=== PATIENT | female | born 1975 | race Caucasian/White ===

== ENCOUNTER → 2016-07-18 | Outpatient (CLI) | payer OTHER ==
[~2016-07-18] MED LIST: ESTR1TAB66; LORA1TAB; OMEP20CA12 PO; ONDA4TAB8 SL; PHEN10TA20; ROSU10TA12
[2016-07-18 07:22] LABS: ALANINE AMINOTRANSFERASE 16 U/L (0-55); ALBUMIN 4.7 G/DL (3.2-4.5); ANION GAP 8 MMOL/L (5-14); ASPARTATE AMINO TRANSFERASE 23 U/L (5-34); BILIRUBIN,TOTAL 0.7 MG/DL (0.1-1.0); BLOOD UREA NITROGEN 4 MG/DL (7-18); BUN/CREATININE RATIO 5; CALCIUM 9.6 MG/DL (8.5-10.1); CARBON DIOXIDE 27 MMOL/L (21-32); CHLORIDE 102 MMOL/L (98-107); CREATININE SERUM 0.74 MG/DL (0.60-1.30); GFR ESTIMATED > 60; GLUCOSE 83 MG/DL (70-105); LIPASE 29 U/L (8-78); POTASSIUM 4.1 MMOL/L (3.6-5.0); SODIUM 137 MMOL/L (135-145); TOTAL PROTEIN 7.3 G/DL (6.4-8.2)
--- NOTE | 2016-07-18 10:01 | Diagnostic Imaging Report ---
PROCEDURE: US Gallbladder. TECHNIQUE: Multiple real-time grayscale images were obtained over the right upper quadrant in various projections. INDICATION: Right upper quadrant pain. FINDINGS: The pancreas is partially obscured by bowel gas. The liver demonstrate no focal lesion. There is normal caliber of the CBD at the 0.4 cm. Hepatopetal flow in the portal vein is seen. The gallbladder demonstrates no stones or wall thickening. No pericholecystic fluid. No fluid collection in the upper right abdomen. Sonographic Adams sign is reportedly negative. The right kidney is 12 cm in length with no hydronephrosis or focal lesion. IMPRESSION: Unremarkable exam. Dictated by: Dictated on workstation # [id number]
== END ==
LOC: RAD 06:48
PROVIDERS: ATTEND Family Medicine
DX: R10.11 Right upper quadrant pain (principal)
CPT/HCPCS: 36415; 76705; 80053; 83690

== ENCOUNTER → 2018-11-04 | Outpatient (CLI) | payer BC, OTHER ==
--- NOTE | 2018-11-04 16:42 | Diagnostic Imaging Report ---
INDICATION: Routine screening. COMPARISON: Comparison is made with prior mammogram from 08/05/2014. TECHNIQUE: 2-D and 3-D bilateral screening mammography was performed. The current study was also evaluated with a Computer Aided Detection (CAD) system. 3-D tomosynthesis was also performed and reviewed. FINDINGS: Scattered fibroglandular densities are identified bilaterally. The parenchymal pattern is stable. No mass or malignant-appearing microcalcifications are seen. Axillae are unremarkable. IMPRESSION: No mammographic features suspicious for malignancy are identified. ACR BI-RADS Category 1: Negative. Result letter will be mailed to the patient. Note: At least 10% of breast cancer is not imaged by mammography. Dictated by: Dictated on workstation # [id number]
== END ==
LOC: RAD 15:42
PROVIDERS: ATTEND Family Medicine
DX: Z12.31 Encounter for screening mammogram for malignant neoplasm of breast (principal)
CPT/HCPCS: 77067

== ENCOUNTER → 2019-05-14 | Outpatient (CLI) | payer BC ==
[~2019-05-14] MED LIST changes: +OMEP-280 PO; -OMEP20CA12 PO
--- NOTE | 2019-05-14 16:37 | Diagnostic Imaging Report ---
INDICATION: Right breast pain for two weeks. FINDINGS: Sonographic interrogation of the area of pain in the lateral right breast was performed. No sonographic abnormality is seen. No solid or cystic mass is detected. IMPRESSION: No sonographic abnormality is detected. Dictated by: Dictated on workstation # [id number]
== END ==
LOC: RAD 14:05
PROVIDERS: ATTEND Family Medicine
DX: N64.4 Mastodynia (principal)
CPT/HCPCS: 76641

== ENCOUNTER → 2020-06-08 | Outpatient (CLI) | payer BC ==
[~2020-06-08] MED LIST changes: -OMEP-280 PO; +OMEP20CA18 PO
--- NOTE | 2020-06-09 11:55 | Diagnostic Imaging Report ---
INDICATION: Routine screening. COMPARISON is made with prior mammograms from 11/04/2018 and 08/05/2014. 2-D and 3-D bilateral screening mammography was performed with CAD. Scattered fibroglandular densities are identified bilaterally. Nodular density in the outer left breast appears stable. No new mass or malignant appearing microcalcifications are seen. Axillae are unremarkable. IMPRESSION: BI-RADS Category 2 No mammographic features suspicious for malignancy are identified. ACR BI-RADS Category 2: Benign findings. Result letter will be mailed to the patient. Note: At least 10% of breast cancer is not imaged by mammography. Dictated by: Dictated on workstation # [id number]
== END ==
LOC: RAD 15:45
PROVIDERS: ATTEND Family Medicine
DX: Z12.31 Encounter for screening mammogram for malignant neoplasm of breast (principal)
CPT/HCPCS: 77063; 77067

== ENCOUNTER → 2020-07-14 | Outpatient (CLI) | payer BC ==
--- NOTE | 2020-07-14 15:12 | Diagnostic Imaging Report ---
INDICATION: Mastodynia. EXAMINATION: Sonographic interrogation of the area of pain in the right breast was performed. This corresponds to inferior half of the right breast. FINDINGS: No sonographic abnormality is seen. No solid or cystic mass is detected. IMPRESSION: No sonographic abnormality is detected. ACR BI-RADS Category 1: Negative. Result letter will be mailed to the patient. Note: At least 10% of breast cancer is not imaged by mammography. Dictated by: Dictated on workstation # [id number]
== END ==
LOC: RAD 14:15
PROVIDERS: ATTEND Obstetrics & Gynecology
DX: N64.4 Mastodynia (principal)

== ENCOUNTER → 2021-07-04 | Outpatient (CLI) | payer BC, OTHER ==
--- NOTE | 2021-07-05 08:57 | Diagnostic Imaging Report ---
INDICATION: Routine screening. COMPARISON: 06/08/2020 and 11/04/2018. TECHNIQUE: 2D and 3D bilateral screening mammography was performed with CAD. FINDINGS: Scattered fibroglandular densities are identified bilaterally. A benign nodule in the lateral left breast is stable. No new mass or malignant-appearing microcalcifications are seen. The axillae are unremarkable. IMPRESSION: No mammographic features suspicious for malignancy are identified. ACR BI-RADS Category 2: Benign findings. Result letter will be mailed to the patient. Note: At least 10% of breast cancer is not imaged by mammography. Dictated by: Dictated on workstation # [id number]
== END ==
LOC: RAD 15:45
PROVIDERS: ATTEND Family Medicine
DX: Z12.31 Encounter for screening mammogram for malignant neoplasm of breast (principal)
CPT/HCPCS: 77063; 77067

== ENCOUNTER → 2021-11-08 | Outpatient (CLI) | payer BC, OTHER ==
[2021-11-08 08:29] LABS: ALBUMIN 4.3 GM/DL (3.2-4.5)
[2021-11-08 08:30] LABS: POTASSIUM 4.5 MMOL/L (3.6-5.0)
[2021-11-08 08:31] LABS: CALCIUM 9.3 MG/DL (8.5-10.1)
[2021-11-08 08:32] LABS: TOTAL PROTEIN 6.8 GM/DL (6.4-8.2)
[2021-11-08 08:34] LABS: BILIRUBIN,TOTAL 0.6 MG/DL (0.1-1.0)
[2021-11-08 08:36] LABS: CREATININE SERUM 0.68 MG/DL (0.60-1.30)
--- NOTE | 2021-11-08 10:58 | Diagnostic Imaging Report ---
PROCEDURE: US Hepatic (Liver). TECHNIQUE: Multiple real-time grayscale images were obtained over the right upper quadrant in various projections. INDICATION: Right upper quadrant pain. The liver is upper limits of normal in size 18 cm. The portal vein is patent and shows normal direction of flow. No discrete liver mass is detected. Gallbladder is without stones or sludge. There is no wall thickening or biliary duct dilatation. Pancreas unremarkable. Aorta is nonaneurysmal. IVC is patent. Right kidney is without calculi or hydronephrosis. There is no ascites. IMPRESSION: Unremarkable right upper quadrant ultrasound. Dictated by: Dictated on workstation # [id number]
== END ==
LOC: RAD 08:00
PROVIDERS: ATTEND Family Medicine
DX: R10.11 Right upper quadrant pain (principal)
CPT/HCPCS: 36415; 76705; 80053; 83690

== ENCOUNTER → 2021-11-23 | Outpatient (CLI) | payer BC ==
[~2021-11-23] MED LIST changes: +CATHETER FLUSH 10 ML SYR IVP PRN
--- NOTE | 2021-11-23 17:33 | Diagnostic Imaging Report ---
INDICATION: Right-sided pain. EXAMINATION: HIDA scan, 11/23/2021. FINDINGS: After uneventful administration of 5.01 mCi of technetium mebrofenin intravenously, subsequent imaging was performed with prompt homogeneous uptake seen throughout the liver. Gallbladder and small bowel were seen within 60 minutes. Subsequent administration of 8 ounces of Ensure ingested orally with continued imaging performed. Ejection fraction is calculated at 28.7%. IMPRESSION: 1. No obstructive process. 2. Low ejection fraction suggesting gallbladder dyskinesia or chronic cholecystitis. Correlate with symptoms. Dictated by: Dictated on workstation # [id number]
== END ==
LOC: CARD 12:00
PROVIDERS: ATTEND Family Medicine
DX: R10.11 Right upper quadrant pain (principal)
CPT/HCPCS: 78227; A9537

== ENCOUNTER 2021-12-04 05:27 | Outpatient (CLI) | payer BC ==
[~2021-12-04] VITALS: Ht 165.1 cm; Wt 63.5 kg
[~2021-12-04 05:27] MED LIST changes: -CATHETER FLUSH 10 ML SYR IVP PRN
[2021-12-04] MEDS ORDERED: LORA-405 PO (10:42)
[2021-12-04] MEDS ORDERED: SYNTEST.HS PO (10:42)
== END 2021-12-04 10:58 ==
LOC: PREOP 05:27
PROVIDERS: ATTEND Surgery
DX: Z01.818 Encounter for other preprocedural examination (principal); K82.8 Other specified diseases of gallbladder

== ENCOUNTER 2021-12-07 08:53 | Day surgery (SDC) | payer BC ==
[~2021-12-07] VITALS: Ht 165.1 cm; Wt 61.4 kg
[2021-12-07] VITALS (10 sets, daily range): BP systolic 130–148; BP diastolic 71–94
[~2021-12-07 08:53] MED LIST changes: +LORA-405 PO; +SYNTEST.HS PO
[2021-12-07] MEDS ORDERED: ceFAZolin INJECTION 1,000 MG VIAL IV ONE (09:15)
[2021-12-07] MEDS: LACTATED RINGERS 1,000 ML IV PRN ×2 (09:33→11:30)
[2021-12-07] MEDS ORDERED: BUP/EPI 0.5% 1:200,000 (MARCAINE) 10ML VIAL IJ ONE (09:59)
[2021-12-07] MEDS ORDERED: HYDROcodone/APAP 5 MG/325 MG (LORTAB) TAB PO ONE (10:00)
[2021-12-07] MEDS ORDERED: ONDANSETRON 4 MG/2 ML (SDV) Z0FRAN IVP PRN ×2 (10:00→12:15)
[2021-12-07] MEDS ORDERED: ACETAMINOPHEN 325 MG TABLET PO PRN (10:00)
[2021-12-07] MEDS ORDERED: morphine INJ 10 MG/ML 1ML (SYR OR VIAL) IVP PRN (10:00)
--- NOTE | 2021-12-07 10:00 | Progress Note-Pre Operative ---
Pre-Operative Progress Note Date H&P Reviewed: Dec 07, 2021 Time H&P Reviewed: 09:55 History & Physical: H&P Reviewed, Patient Examed, No changes noted Pre-Operative Diagnosis: Symptomatic biliary dyskinesia DIMPLE JACKSON APRN Dec 07, 2021 10:00
[2021-12-07] MEDS ORDERED: HYDR-3817 PO (10:01)
--- NOTE | 2021-12-07 10:02 | Discharge Inst-Surgical ---
D/C Lap Instructions-KIDO Reconcile Patient Problems Problems Reviewed?: Yes New, Converted, or Re-Newed RX: RX on Chart Follow Up Appt in 2 weeks Activity as tolerated No driving for 24 hours No driving while on pain medications Incentive Spirometry use every 2 hours while awake Regular Diet Symptoms to Report: Fever over 101 degree F, Nausea/Vomiting Infection Signs and Symptoms to report: Increased redness, Foul odor of wound, Increased drainage Bathing instructions: May shower Operative Area Clean/Dry; Keep incision clean/dry If any problems/questions: Contact your physician or go to Emergency Room DIMPLE JACKSON APRN Dec 07, 2021 10:02
[2021-12-07] MEDS ORDERED: BUP/EPI 0.5% 1:200,000 (SENSORCAINE) 30 ML VIAL INJ ONE (10:04)
[2021-12-07] MEDS ORDERED: MIDAZOLAM 2 MG/2 ML (VERSED) VIAL ONE (10:08)
[2021-12-07] MEDS ORDERED: fentaNYL INJ 100 MCG/2 ML AMP ONE (10:08)
[2021-12-07] MEDS ORDERED: ONDANSETRON 4 MG/2 ML (SDV) Z0FRAN ONE (10:08)
[2021-12-07] MEDS ORDERED: LIDOCAINE PF 1% 5 ML (XYLOCAINE) AMP ONE (10:08)
[2021-12-07] MEDS ORDERED: proPOfol 200 MG/20 ML (DIPRIVAN) VIAL IV ONE (10:08)
[2021-12-07] MEDS ORDERED: ROCURONIUM 50 MG/5 ML (ZEMURON) VIAL IV ONE (10:08)
[2021-12-07] MEDS ORDERED: GLYCOPYRROLATE 0.2 MG/ML (ROBINUL) 2 ML VIAL ONE (11:52)
[2021-12-07] MEDS ORDERED: NEOSTIGMINE (BLOXIVERZ ) 1 MG/1ML 10 ML VIAL ONE (11:52)
--- NOTE | 2021-12-07 11:59 | Progress Note-Post Operative ---
Post-Operative Progess Note Surgeon (s)/Lift Electrician (s) Surgeon COTY TAO MD Lift Electrician: juanita alanis TIPPLE REPAIRER Pre-Operative Diagnosis Symptomatic biliary dyskinesia Post-Operative Diagnosis same Procedure & Operative Findings Date of Procedure 12/07/21 Procedure Performed/Findings laparoscopic cholecystectomy Anesthesia Type get Estimated Blood Loss Estimated blood loss (mL): minimal Specimens/Packing Specimens Removed gallbladder COTY TAO MD Dec 07, 2021 11:58
--- NOTE | 2021-12-07 12:09 | Anesthesia-General Post-Op ---
General Patient Condition Mental Status/LOC: Same as Preop Cardiovascular: Satisfactory Nausea/Vomiting: Absent Respiratory: Satisfactory Pain: Controlled Complications: Absent Post Op Complications Complications None Follow Up Care/Instructions Patient Instructions None needed. Anesthesia/Patient Condition Patient Condition Patient is doing well, no complaints, stable vital signs, no apparent adverse anesthesia problems. No complications reported per nursing. CINDY GORDILLO CRNA Dec 07, 2021 12:09
[2021-12-07] MEDS ORDERED: HYDROmorphone 2 MG/ML VIAL (DILAUDID) ONE (12:14)
[2021-12-07] MEDS ORDERED: PROMETHAZINE INJ 25 MG/ML (PHENERGAN) AMP IVP ONE (12:15)
[2021-12-07] MEDS ORDERED: fentaNYL INJ 100 MCG/2 ML AMP IVP ONE (12:15)
[2021-12-07] MEDS ORDERED: HYDROmorphone 2 MG/ML VIAL (DILAUDID) IV ONE (12:15)
[2021-12-07] MEDS ORDERED: MEPERIDINE (DEMEROL) INJ 50 MG/ML IVP ONE (12:15)
[2021-12-07] MEDS ORDERED: SEVOFLURANE (ULTANE) 15 ML INHAL SOLN ONE (13:20)
[2021-12-07] MEDS ORDERED: HYDROcodone/APAP 5 MG/325 MG (LORTAB) TAB ONE (14:01)
--- NOTE | 2021-12-08 04:40 | OPERATIVE REPORT ---
DATE OF SERVICE: 12/07/2021 ATTENDING PRIMARY CARE PHYSICIAN: Dr. Steve Roger. PREOPERATIVE DIAGNOSIS: Symptomatic biliary dyskinesia. POSTOPERATIVE DIAGNOSIS: Symptomatic biliary dyskinesia. PROCEDURES: Laparoscopic cholecystectomy. SURGEON: Coty Tao MD LIVESTOCK COUNTER: Froy Ramirez APRN. ANESTHESIA: General endotracheal. ESTIMATED BLOOD LOSS: Minimal. FINDINGS: Distended gallbladder, thick bile. DISPOSITION: The patient tolerated the procedure well. HOSPITAL COURSE: The patient is a 46-year-old female with a 3-month history of intermittent pain in the right upper abdominal quadrant, usually after eating meals. This has become worse over time. She also reports early satiety as well as pain in the right upper abdominal quadrant. She underwent an ultrasound, which did not show any gallstones; however, she then underwent a HIDA scan, which showed a low ejection fraction of 24% with reproduction of symptoms consistent with a biliary dyskinesia. The patient was brought to the operating room, laid supine on the table. After adequate IV pain and sedative medications and general endotracheal intubation, the abdomen was prepped and draped in standard surgical fashion. A 0.5% Marcaine with epinephrine was then used to anesthetize the overlying skin left upper abdominal quadrant and transverse skin incision made using a 15 blade. An 0 silk suture was applied to the medial aspect of the incision for retraction and a Veress needle inserted with a low opening pressure of 0 mmHg. The abdomen was then insufflated to 15 mmHg pressure. The Veress needle removed, and a 5 mm XL trocar placed followed by a 5 mm 45-degree angle laparoscope visualizing the peritoneal cavity. A 4-quadrant abdominal exploration was performed. There was a distended gallbladder, no gallbladder wall thickening. Under direct visualization, we then proceed to place a supraumbilical 10 mm port after the skin and peritoneal lining were anesthetized using 0.5% Marcaine with epinephrine and a transverse skin incision made using a 15 blade. In a similar manner, a right upper abdominal quadrant 5 mm port was placed. The patient was then placed in reverse Trendelenburg position as well as plane right side up, left side down. The fundus of the gallbladder was then retracted anteriorly and superiorly. The hepatoduodenal ligament was then dissected open using blunt dissection as well as electrocautery on the hook instrument as well as a [place] dissector. The entire critical view of safety was identified including the triangle of Calot as well as the cystic duct and artery as only two structures going into the gallbladder as well as the cystic plate behind the proximal gallbladder. A timeout was then taken, and the cystic duct and artery were then clipped proximally and distally and cut with EndoShears. The gallbladder was then dissected off the liver bed using cautery, hook instrument with visualization of good hemostasis as well as no leaking ducts of Luschka. The gallbladder was removed through the 10 mm port site using an EndoCatch bag. The fascia and peritoneal lining were then closed under direct visualization using a Jose Martin-Angelica device and an 0-vicryl suture. Skin was closed using 4-0 monocryl running subcuticular suture. Wound was cleaned and covered with dermabond. The patient tolerated the procedure well. We will start IV normal pain medication as well as a clear liquid diet. When she is tolerating clears, has good pain control with oral pain medications, ambulating well, we will discharge her home, where she will be instructed to do no heavy lifting or exertion for the next two weeks. Job ID: [id number] DocumentID: [id number] Dictated Date: 12/07/2021 12:03:15 Sql Programmer Analyst Date: 12/08/2021 04:38:52 Dictated By: COTY TAO MD [facility]
== END 2021-12-07 14:30 | disposition home or self-care (01) ==
LOC: SDC 08:53
PROVIDERS: ATTEND Surgery
DX: K82.8 Other specified diseases of gallbladder (principal); K81.1 Chronic cholecystitis; F17.210 Nicotine dependence, cigarettes, uncomplicated; Z28.310 Unvaccinated for COVID-19
CPT/HCPCS: 87081

== ENCOUNTER → 2023-02-06 | Outpatient (CLI) | payer BC ==
[~2023-02-06] MED LIST changes: +HYDR-3817 PO
--- NOTE | 2023-02-06 16:18 | Diagnostic Imaging Report ---
INDICATION: Routine screening. COMPARISON: 07/04/2021 and 06/08/2020. TECHNIQUE: 2D and 3D bilateral screening mammography was performed with CAD. FINDINGS: Scattered fibroglandular densities are identified bilaterally. A benign-appearing nodule in the outer left breast is stable. No new mass or malignant-appearing microcalcifications are identified. The axillae are unremarkable. IMPRESSION: No mammographic features suspicious for malignancy are identified. ACR BI-RADS Category 2: Benign findings. Result letter will be mailed to the patient. Note: At least 10% of breast cancer is not imaged by mammography. Dictated by: Dictated on workstation # [id number]
== END ==
LOC: RAD 14:56
PROVIDERS: ATTEND Family Medicine
DX: Z12.31 Encounter for screening mammogram for malignant neoplasm of breast (principal)
CPT/HCPCS: 77063; 77067